=== PATIENT | female | born 1985 | race American Indian/Alaskan Native ===

== ENCOUNTER 2020-05-08 11:10 | Emergency (ER) | payer BC, OTHER ==
[2020-05-08] MEDS ORDERED: Diphtheria,Pertussis(Acell),Tetanus Vaccine 0.5 ML Syringe IM ONE (11:44)
--- NOTE | 2020-05-08 12:16 | EDM.PDOC ---
ED HPI GENERAL MEDICAL PROBLEM - General Chief Complaint: Laceration Stated Complaint: LIP LAC Time Seen by Provider: 05/08/20 11:21 Source of Information: Reports: Patient History Limitations: Reports: No Limitations - History of Present Illness INITIAL COMMENTS - FREE TEXT/NARRATIVE: Patient is a 34-year-old female who presents to the emergency department with complaints of a laceration to her right upper lip. States she was playing softball and was hit in the mouth with another player's elbow. She is unsure when her last tetanus vaccination was. - Related Data Allergies Allergy/AdvReac Type Severity Reaction Status Date / Time No Known Allergies Allergy Verified 05/08/20 11:23 Home Meds: Home Meds . [No Known Home Meds] 05/08/20 [History] Past Medical History - Past Surgical History Musculoskeletal Surgical History: Reports: Other (See Below) Other Musculoskeletal Surgeries/Procedures:: ACL repair Social & Family History - Tobacco Use Smoking Status *Q: Never Smoker Second Hand Smoke Exposure: No - Caffeine Use Caffeine Use: Reports: Coffee - Recreational Drug Use Recreational Drug Use: No ED ROS GENERAL - Review of Systems Review Of Systems: Comprehensive ROS is negative, except as noted in HPI. ED EXAM, SKIN/RASH Exam: See Below Exam Limited By: No Limitations General Appearance: Alert, WD/WN, No Apparent Distress Respiratory/Chest: No Respiratory Distress, Lungs Clear, Normal Breath Sounds, No Accessory Muscle Use, Chest Non-Tender Cardiovascular: Normal Peripheral Pulses, Regular Rate, Rhythm, No Edema, No Gallop, No JVD, No Murmur, No Rub Neurological: Alert, Oriented, CN II-XII Intact, Normal Cognition, Normal Gait, Normal Reflexes, No Motor/Sensory Deficits Psychiatric: Normal Affect, Normal Mood Skin: Other (1 cm well approximated laceration to the right upper lip. It is not gaping. Scant bleeding.) ED SKIN PROCEDURES - Laceration/Wound Repair right upper lip Appearance: Subcutaneous Skin Prep: Chlorhexidine (Hibiciens), Saline Exploration/Debridement/Repair: Wound Explored, No Foreign Material Found Closed with: Wound Adhesive Lac/Wound length In cm: 1 Tetanus Status Addressed: Yes (Patient declined tetanus vaccination. Stated she will go to the clinic when she gets home to have it as she does not want have a sore arm while playing softball.) Complications: No Course - Vital Signs Last Recorded V/S: Last Vital Signs Temp 97.7 F 05/08/20 11:21 Pulse 65 05/08/20 11:21 Resp 16 05/08/20 11:21 BP 110/75 05/08/20 11:21 Pulse Ox 98 05/08/20 11:21 - Orders/Labs/Meds Orders: Active Orders 24 hr Category Date Time Status Vaccines to be Administered [RC] PER UNIT ROUTINE Care 05/08/20 11:44 Active Meds: Medications Discontinued Medications Generic Name Dose Route Start Last Admin Trade Name Crow PRN Reason Stop Dose Admin Diphtheria/Tetanus/Acell Pertussis 0.5 ml 05/08/20 11:44 Adacel IM 05/08/20 11:45 .ONCE ONE Departure - Departure Time of Disposition: 12:16 Disposition: Home, Self-Care 01 Condition: Good Clinical Impression: Laceration - Discharge Information *PRESCRIPTION DRUG MONITORING PROGRAM REVIEWED*: No *COPY OF PRESCRIPTION DRUG MONITORING REPORT IN PATIENT SARAI: No Instructions: Sutures, Alexey, or Adhesive Wound Closure, [id number] Referrals: PCP,None [Primary Care Provider] - Forms: ED Department Discharge Additional Instructions: You were seen in the emergency department today for a 1 cm laceration to your right upper lip. Wound was cleansed and closed with glue. This will fall off over the next 3 to 5 days. Ensure that you do not pick at the glue. Watch for signs of infection including increased redness, swelling, purulent drainage. If these should occur, you should be seen either in the clinic or in the emergency department. We would recommend that you get a tetanus vaccination upon returning home. Return to the ER as needed. Sepsis Event Note (ED) - Evaluation Sepsis Screening Result: No Definite Risk - Focused Exam Vital Signs: Vital Signs Temp Pulse Resp BP Pulse Ox 05/08/20 11:21 97.7 F 65 16 110/75 98 - My Orders Last 24 Hours: My Active Orders 05/08/20 11:44 Vaccines to be Administered [RC] PER UNIT ROUTINE - Assessment/Plan Last 24 Hours: My Active Orders 05/08/20 11:44 Vaccines to be Administered [RC] PER UNIT ROUTINE
== END 2020-05-08 12:23 | disposition home or self-care (01) ==
LOC: JD.ED 11:10
DX: S01.511A Laceration without foreign body of lip, initial encounter (principal); W50.0XXA Accidental hit or strike by another person, initial encounter; Y93.64 Activity, baseball
CPT/HCPCS: 12011; 99282